=== PATIENT | male | born 1980 | race Caucasian/White ===

== ENCOUNTER 2019-02-09 09:13 | Emergency (ER) | payer MEDICAID ==
[2019-02-09 09:34] LABS: ADD MAN DIFF? NO
[2019-02-09 09:37] LABS: BASOPHIL # 0.1 10^3/ul (0.0-0.1); BASOPHILS % 0.4 % (0.0-2.0); EOSINOPHILS # 0.2 10^3/ul (0.0-0.5); EOSINOPHILS % 1.8 % (0.0-7.0); HEMATOCRIT 42.6 % (42.0-52.0); LYMPHOCYTES # 2.2 10^3/ul (0.8-2.9); LYMPHOCYTES % 17.5 % (15.0-51.0); MEAN CORPUSCULAR HEMOGLOBIN 28.1 pg (29.0-33.0); MEAN CORPUSCULAR HGB CONC 32.9 g/dl (32.0-37.0); MEAN CORPUSCULAR VOLUME 85.4 fl (82.0-101.0); MEAN PLATELET VOLUME 12.7 fl (7.4-10.4); MONOCYTE # 0.7 10^3/ul (0.3-0.9); MONOCYTES % 5.4 % (0.0-11.0); NEUTROPHIL # 9.2 10^3/ul (1.6-7.5); NEUTROPHILS % 74.5 % (39.0-77.0); PLATELET COUNT 188 10^3/UL (140-415); RED BLOOD COUNT 4.99 10^6/ul (4.70-6.10); RED CELL DISTRIBUTION WIDTH 13.5 % (11.5-14.5)
[2019-02-09 09:37] LABS: WHITE BLOOD COUNT 12.4 10^3/ul (4.8-10.8)
[2019-02-09] MEDS ORDERED: NALOXONE (0.4 MG/ML) INJ (09:57)
[2019-02-09] MEDS: SOD CHLORIDE 0.9% 1,000 ML IV (09:59)
[2019-02-09 10:00] LABS: AMMONIA < 9 umol/l (9-30)
[2019-02-09] MEDS: NALOXONE (0.4 MG/ML) INJ IV ×2 (10:01→12:23)
[2019-02-09 10:02] LABS: ALANINE AMINOTRANSFERASE 37 IU/L (13-69); ALBUMIN 3.5 g/dl (3.3-4.9); ALKALINE PHOSPHATASE 102 IU/L (42-121); ANION GAP 9 (5-13); ASPARTATE AMINO TRANSFERASE 26 IU/L (15-46); BILIRUBIN,INDIRECT 0.3 mg/dl (0-1.1); BILIRUBIN,TOTAL 0.3 mg/dl (0.2-1.3); BLOOD UREA NITROGEN 21 mg/dl (7-20); CALCIUM 8.8 mg/dl (8.4-10.2); CARBON DIOXIDE 28 mmol/L (21-31); CHLORIDE 99 mmol/L (97-110); CREATININE 0.65 mg/dl (0.61-1.24); Estimated GFR > 60 mL/min (>60); GLUCOSE 179 mg/dl (70-220); POTASSIUM 3.6 mmol/L (3.5-5.1); SODIUM 136 mmol/L (135-144); TOTAL PROTEIN 6.4 g/dl (6.1-8.1)
[2019-02-09 10:04] LABS: INR 0.94; PROTIME 12.7 Sec (11.9-14.9)
[2019-02-09 10:07] LABS: ACETAMINOPHEN < 10.0 ug/ml (10.0-30.0); ETHANOL < 10.0 mg/dl (0-0); SALICYLATE < 1.0 mg/dl (5.0-30.0)
[2019-02-09 10:08] LABS: ADD UMIC NO; UR ASCORBIC ACID NEGATIVE (NEGATIVE); UR BILIRUBIN (Dip) NEGATIVE (NEGATIVE); UR BLOOD (Dip) NEGATIVE (NEGATIVE); UR CLARITY CLEAR (CLEAR); UR COLOR STRAW (YELLOW); UR GLUCOSE (Dip) 2+ mg/dL (NEGATIVE); UR KETONES (Dip) NEGATIVE (NEGATIVE); UR LEUKOCYTE ESTERASE (Dip) NEGATIVE Leu/ul (NEGATIVE); UR NITRITE (Dip) NEGATIVE (NEGATIVE); UR SPECIFIC GRAVITY (Dip) 1.006 (1.003-1.030); UR TOTAL PROTEIN (Dip) NEGATIVE (NEGATIVE); UR UROBILINOGEN (Dip) NEGATIVE (NEGATIVE)
[2019-02-09 10:15] LABS: TROPONIN-I < 0.012 ng/ml (0.000-0.120)
[2019-02-09 10:30] LABS: BARBITURATES Negative (NEGATIVE); BENZODIAZEPINES Negative (NEGATIVE); CANNABINOIDS Negative (NEGATIVE); COCAINE Negative (NEGATIVE); OPIATES Negative (NEGATIVE)
[2019-02-09 10:58] LABS: AMPHETAMINE/METHAMPHETAMINE POSITIVE (NEGATIVE)
[2019-02-09] MEDS: KETOROLAC 15 MG INJ IV (14:51)
== END 2019-02-09 23:17 ==
LOC: E/R 09:13
DX: F15.188 Other stimulant abuse with other stimulant-induced disorder (principal); D72.829 Elevated white blood cell count, unspecified; E86.0 Dehydration; F32.1 Major depressive disorder, single episode, moderate; R07.9 Chest pain, unspecified
CPT/HCPCS: 36415; 51702; 70450; 71045; 73030; 80053; 80307; 81003; 82140; 82962; 84484; 85025; 85610; 93005; 96374; 96375; 96376; 99285-25